=== PATIENT | female | born 1980 | race Caucasian/White ===

== ENCOUNTER 2017-03-26 12:00 | Emergency (ER) | payer OTHER ==
[2017-03-26 15:01] VITALS: BP 133/80
--- NOTE | 2017-03-26 15:23 | UC ---
Throat Pain/Nasal José Antonio HPI - HPI Summary HPI Summary: ST, chills, PND, nasal congestion started yesterday. 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 Swallowing "feels like razor blades." No cough or trouble breathing. - History of Current Complaint Stated Complaint: THROAT,DAVEY,FEVER Time Seen by Provider: 03/26/17 14:57 Hx Obtained From: Patient ?: No Onset/Duration: Gradual Onset, Lasting Hours Severity: Moderate Cough: None Associated Signs & Symptoms: Positive: Sinus Discomfort, Fever. Negative: Wheezing, Hoarseness, Vomiting, Rash - Allergies/Home Medications Allergies/Adverse Reactions: Allergies Allergy/AdvReac Type Severity Reaction Status Date / Time No Known Allergies Allergy Verified 03/26/17 15:01 Home Medications: Home Medications Ibuprofen TAB* [Motrin TAB* 800 MG] 800 mg PO ONCE PRN 03/26/17 [History Confirmed 03/26/17] PMH/Surg Hx/FS Hx/Imm Hx Previously Healthy: Yes - Surgical History Surgical History: Yes Surgery Procedure, Year, and Place: right foot surgery x3 - Family History Known Family History: Negative: Blood Disorder - Social History Occupation: Employed Part-time Alcohol Use: None Substance Use Type: None Smoking Status (MU): Never Smoked Tobacco Review of Systems Constitutional: Fever, Chills Skin: Negative Eyes: Negative ENT: Sore Throat Respiratory: Negative Cardiovascular: Negative Gastrointestinal: Negative Genitourinary: Negative Motor: Negative Neurovascular: Negative Musculoskeletal: Negative Neurological: Negative Psychological: Negative Is Patient Immunocompromised?: No All Other Systems Reviewed And Are Negative: Yes Physical Exam Triage Information Reviewed: Yes Appearance: No Pain Distress, Well-Nourished Vital Signs: Initial Vital Signs Temp 98.6 F 03/26/17 14:57 Pulse 91 03/26/17 14:57 Resp 16 03/26/17 14:57 BP 133/80 03/26/17 14:57 Pulse Ox 100 03/26/17 14:57 Vital Signs Reviewed: Yes Eye Exam: Normal Eyes: Positive: Conjunctiva Clear ENT: Positive: Normal ENT inspection, Hearing grossly normal, Pharynx normal, Nasal congestion, TMs normal. Negative: TM bulging, TM dull, TM red, Tonsillar swelling, Tonsillar exudate Dental Exam: Normal Neck exam: Normal Neck: Positive: Supple, Nontender, No Lymphadenopathy Respiratory Exam: Normal Respiratory: Positive: Chest non-tender, Lungs clear, Normal breath sounds, No respiratory distress, No accessory muscle use Cardiovascular Exam: Normal Cardiovascular: Positive: RRR, No Murmur Musculoskeletal Exam: Normal Neurological Exam: Normal Neurological: Positive: Alert Psychological Exam: Normal Skin Exam: Normal Throat Pain/Nasal Course/Dx - Differential Dx/Diagnosis Provider Diagnoses: URI, likely viral Discharge - Discharge Plan Condition: Stable Disposition: HOME Patient Education Materials: Upper Respiratory Infection (ED) Forms: *Work Release Referrals: Tierra Rosales MD [Primary Care Provider] - Additional Instructions: [id number] MEDICINES ARE ONLY INTENDED TO GIVE TEMPORARY RELIEF. YOU SHOULD STOP TAKING ANY COUGH OR COLD PREPARATION THAT FAILS TO MAKE YOU FEEL AT LEAST A LITTLE BIT BETTER. a DECONGESTANT can help with your stuffiness and sinuses. The most effective decongestant is Pseudoephedrine (Sudafed or generic), but you need to ask the pharmacist as it is kept behind the counter. ANTIHISTAMINES are generally NOT helpful in many colds and flus, as they can worsen sore throat and cause dry eyes/mouth and drowsiness. Antihistamines are nearly always found in "nighttime" medicines for their sedating properties ( such as Nyquil). Examples are Diphenhydramine HCL, Doxylamine, and Chlorpheniramine. They may help if you are having profuse clear drainage from the nose. an EXPECTORANT helps thin mucous in the nose and in the chest, making it easier to clear out. Expectorants are in most combination cough/cold remedies and should be taken with plenty of water. Guaifenesin is the most common expectorant , and comes in pill or liquid form (Mucinex is an extended-release form of guaifenesin). a COUGH SUPPRESSANT reduces the body's cough reflex. Dextromethorphan is in over -the-counter products, but sometimes narcotics (such as codeine or hydrocodone) are used for their cough suppressant properties. WHILE THERE IS NO CURE FOR A VIRAL COLD, THERE IS SOME EVIDENCE THAT VITAMIN C, ZINC LOZENGES, AND ECHINACEA CAN HELP SHORTEN THE DURATION OF SYMPTOMS; APPROXIMATE DOSES ARE UP TO 1000mg VITAMIN C PER DAY AND ZINC LOZENGES (MUST BE DISSOLVED IN THE MOUTH AND NOT SWALLOWED) EVERY 2 HOURS WHILE AWAKE. THE DOSE OF ECHINACEA HAS NOT BEEN ESTABLISHED, SO MAKE SURE YOU FOLLOW THE DIRECTIONS ON THE PACKAGE OF ANY PRODUCT YOU CHOOSE TO USE.
== END 2017-03-26 15:34 | disposition home or self-care (01) ==
LOC: UCCORT 12:00
DX: J06.9 Acute upper respiratory infection, unspecified (principal)
CPT/HCPCS: 87651; 99201; G0463

== ENCOUNTER 2017-09-26 15:36 | Emergency (ER) | payer SELFPAY ==
[2017-09-26 16:01] VITALS: BP 110/74
--- NOTE | 2017-09-26 16:32 | UC ---
Throat Pain/Nasal José Antonio HPI - HPI Summary HPI Summary: 36 yo female with sore throat x 1 day fever no cp or sob no n/v - History of Current Complaint Chief Complaint: UCRespiratory Stated Complaint: SORE/SWOLLEN THROAT Time Seen by Provider: 09/26/17 15:51 Hx Obtained From: Patient Hx Last Menstrual Period: essure- 1.5 month ago Onset/Duration: Sudden Onset, Lasting Hours Severity: Moderate Pain Intensity: 5 Pain Scale Used: 0-10 Numeric Cough: None Associated Signs & Symptoms: Positive: Fever - Allergies/Home Medications Allergies/Adverse Reactions: Allergies Allergy/AdvReac Type Severity Reaction Status Date / Time No Known Allergies Allergy Verified 09/26/17 15:54 Home Medications: Home Medications Dexmethylphenidate HCl [Focalin] 1 tab BID 09/26/17 [History Confirmed 09/26/17] PMH/Surg Hx/FS Hx/Imm Hx Previously Healthy: Yes - Surgical History Surgical History: Yes Surgery Procedure, Year, and Place: right foot surgery x3 - Family History Known Family History: Negative: Blood Disorder - Social History Alcohol Use: None Substance Use Type: None Smoking Status (MU): Never Smoked Tobacco - Immunization History Most Recent Tetanus Shot: UTD Review of Systems Constitutional: Fever Skin: Negative Eyes: Negative ENT: Sore Throat Respiratory: Negative Cardiovascular: Negative Gastrointestinal: Negative Genitourinary: Negative Motor: Negative Neurovascular: Negative Musculoskeletal: Negative Neurological: Negative Psychological: Negative Is Patient Immunocompromised?: No All Other Systems Reviewed And Are Negative: Yes Physical Exam Triage Information Reviewed: Yes Appearance: Well-Appearing, No Pain Distress, Well-Nourished Vital Signs: Initial Vital Signs Temp 98.2 F 09/26/17 15:56 Pulse 89 09/26/17 15:56 Resp 17 09/26/17 15:56 BP 110/74 09/26/17 15:56 Pulse Ox 100 09/26/17 15:56 Vital Signs Reviewed: Yes Eyes: Positive: Conjunctiva Clear ENT: Positive: Pharyngeal erythema, Tonsillar swelling, Tonsillar exudate. Negative: Nasal congestion, Nasal drainage, Hoarse voice Neck: Positive: Supple, Nontender, Enlarged Nodes @ - ant cervical Respiratory: Positive: Lungs clear, Normal breath sounds, No respiratory distress, No accessory muscle use Cardiovascular: Positive: RRR, No Murmur Musculoskeletal: Positive: ROM Intact, No Edema Neurological: Positive: Alert Psychological Exam: Normal Skin Exam: Normal Diagnostics - Laboratory Diagnostic Studies Completed/Ordered: strep (-) Throat Pain/Nasal Course/Dx - Differential Dx/Diagnosis Provider Diagnoses: acute tonsillitis Discharge - Sign-Out/Discharge Documenting (check all that apply): Discharge/Admit/Transfer - Discharge Plan Condition: Stable Disposition: HOME Prescriptions: Cephalexin CAP* [Keflex CAP*] 500 mg PO BID #20 cap Patient Education Materials: Tonsillitis (ED) Referrals: Jorje Saini MD [Primary Care Provider] - Additional Instructions: rest fluids tylenol or advil recheck in 3-4 days if not better recheck sooner if symptoms worsen - Billing Disposition and Condition Condition: STABLE Disposition: HOME
== END 2017-09-26 16:34 | disposition home or self-care (01) ==
LOC: UCCORT 15:36
DX: J03.90 Acute tonsillitis, unspecified (principal)
CPT/HCPCS: 87651; 99212; G0463

== ENCOUNTER 2018-12-04 10:22 | Emergency (ER) | payer BC ==
[2018-12-04 11:46] VITALS: BP 111/72
--- NOTE | 2018-12-04 12:00 | UC ---
Skin Complaint HPI - HPI Summary HPI Summary: Pt presents with c/o itchy rash to right upper posterior leg that began "a couple days ago". Pt has known exposure to chicken pox, has hx of chickenpox as child, reports that she has generalized malaise and that rash is spreading. - History of Current Complaint Chief Complaint: UCSkin Time Seen by Provider: 12/04/18 11:48 Stated Complaint: SKIN COMPLAINT Hx Obtained From: Patient Hx Last Menstrual Period: 11/20/18 ?: No Onset/Duration: Sudden Onset, Lasting Days, Still Present Skin Exposure Onset/Duration: Days Ago Timing: Constant Onset Severity: Mild Current Severity: Mild Pain Intensity: 3 Location: Diffuse Character: Pruritus, Raised, Painful Aggravating Factor(s): Touch Alleviating Factor(s): Nothing Associated Signs & Symptoms: Positive: Rash Related History: Other: - known exposure - Allergy/Home Medications Allergies/Adverse Reactions: Allergies Allergy/AdvReac Type Severity Reaction Status Date / Time No Known Allergies Allergy Verified 12/04/18 11:47 Home Medications: Home Medications Amphetamine MIXED SALT TAB* [Adderall TAB*] 1 tab PO DAILY 12/04/18 [History Confirmed 12/04/18] PMH/Surg Hx/FS Hx/Imm Hx Previously Healthy: Yes - Surgical History Surgical History: Yes Surgery Procedure, Year, and Place: right foot surgery x3 - Family History Known Family History: Negative: Blood Disorder - Social History Occupation: Employed Full-time Lives: With Family Alcohol Use: None Substance Use Type: None Smoking Status (MU): Never Smoked Tobacco Have You Smoked in the Last Year: No - Immunization History Most Recent Tetanus Shot: UTD Vaccination Up to Date: Yes Review of Systems All Other Systems Reviewed And Are Negative: Yes Constitutional: Positive: Negative Skin: Positive: Rash Eyes: Positive: Negative ENT: Positive: Negative Respiratory: Positive: Negative Cardiovascular: Positive: Negative Gastrointestinal: Positive: Negative Genitourinary: Positive: Negative Motor: Positive: Negative Neurovascular: Positive: Negative Musculoskeletal: Positive: Negative Neurological: Positive: Negative Psychological: Positive: Negative Is Patient Immunocompromised?: No Physical Exam Triage Information Reviewed: Yes Appearance: Well-Appearing Vital Signs: Initial Vital Signs Temp 98.9 F 12/04/18 11:40 Pulse 79 12/04/18 11:40 Resp 16 12/04/18 11:40 BP 111/72 12/04/18 11:40 Pulse Ox 98 12/04/18 11:40 Vital Signs Reviewed: Yes Eye Exam: Normal ENT: Positive: Hearing grossly normal Dental Exam: Normal Neck exam: Normal Respiratory: Positive: No respiratory distress Musculoskeletal Exam: Normal Neurological Exam: Normal Psychological Exam: Normal Skin: Positive: Rashes - right upper posterior thigh, vessicles with clear fluid , some closed and some opened and drained, pt c/o they are itchy and tender to touch Course/Dx - Differential Diagnoses - Skin Complaint Differential Diagnoses: Varicella Zoster, Viral Exanthem - Diagnoses Provider Diagnosis: Rash and nonspecific skin eruption Discharge - Sign-Out/Discharge Documenting (check all that apply): Patient Departure All imaging exams completed and their final reports reviewed: No Studies - Discharge Plan Condition: Stable Disposition: HOME Prescriptions: ValACYclovir (*) [Valtrex 500 mg (*)] 500 mg PO Q12H #14 tab Patient Education Materials: Acute Rash (ED), Viral Syndrome (ED) Forms: *Work Release Referrals: Jorje Sanii MD [Primary Care Provider] - If Needed - Billing Disposition and Condition Condition: STABLE Disposition: Home - Attestation Statements Provider Attestation: Pt not seen by me. I was available for consult. BRANDON
== END 2018-12-04 12:08 | disposition home or self-care (01) ==
LOC: UCCORT 10:22
DX: R21 Rash and other nonspecific skin eruption (principal)
CPT/HCPCS: 99212; G0463

== ENCOUNTER 2019-04-27 16:41 | Emergency (ER) | payer BC ==
[2019-04-27 16:51] VITALS: BP 108/70
--- NOTE | 2019-04-27 16:58 | UC ---
Ear Complaint HPI - HPI Summary HPI Summary: C/O 4 day h/o URI with congestion with right sided sinus pain and ear fullness/ pressure pain. Cough with some coughing fits. H/O seasonal allergies. - History of Current Complaint Chief Complaint: UCRespiratory Stated Complaint: SINUS COMPLAINT Hx Obtained From: Patient Hx Last Menstrual Period: 04/08/19 ?: No Onset/Duration: Sudden Onset, Lasting Days - 4, Still Present Severity Initially: Moderate Severity Currently: Moderate Pain Intensity: 5 Aggravating Factors: Nothing Associated Signs/Symptoms: Positive: Hearing Loss, URI Symptoms Related History: Seasonal Allergies - Allergies/Home Medications Allergies/Adverse Reactions: Allergies Allergy/AdvReac Type Severity Reaction Status Date / Time No Known Allergies Allergy Verified 04/27/19 16:51 Home Medications: Home Medications Bupropion XL* [Wellbutrin XL *] 150 mg BID 04/27/19 [History Confirmed 04/27/19] PMH/Surg Hx/FS Hx/Imm Hx Previously Healthy: Yes - Surgical History Surgical History: Yes Surgery Procedure, Year, and Place: right foot surgery x3 - Family History Known Family History: Negative: Diabetes, Blood Disorder - Social History Occupation: Employed Full-time Lives: With Family Alcohol Use: None Substance Use Type: None Smoking Status (MU): Never Smoked Tobacco Have You Smoked in the Last Year: No - Immunization History Most Recent Tetanus Shot: UTD Vaccination Up to Date: Yes Review of Systems All Other Systems Reviewed And Are Negative: Yes Constitutional: Positive: Fever, Chills ENT: Positive: Sore Throat, Ear Ache, Nasal Discharge, Sinus Congestion Respiratory: Positive: Shortness Of Breath, Cough Physical Exam Triage Information Reviewed: Yes Appearance: No Pain Distress, Well-Nourished, Ill-Appearing Vital Signs: Initial Vital Signs Temp 98.7 F 04/27/19 16:48 Pulse 95 04/27/19 16:48 Resp 17 04/27/19 16:48 BP 108/70 04/27/19 16:48 Pulse Ox 98 04/27/19 16:48 Vital Signs Reviewed: Yes Eyes: Positive: Conjunctiva Clear ENT: Positive: Pharynx normal, Nasal congestion, TMs normal - with some retraction Neck exam: Normal Respiratory: Positive: Lungs clear, Wheezing - expiratory wheeze with coughing. Cardiovascular Exam: Normal Musculoskeletal Exam: Normal Neurological Exam: Normal Psychological Exam: Normal Skin Exam: Normal Ear Complaint Course/Dx - Differential Dx/Diagnosis Differential Diagnosis/HQI/PQRI: Otitis Media, Pharyngitis, URI Provider Diagnosis: Upper respiratory infection with cough and congestion, Acute bacterial sinusitis, Acute bronchospasm Discharge ED - Sign-Out/Discharge Documenting (check all that apply): Patient Departure All imaging exams completed and their final reports reviewed: No Studies - Discharge Plan Condition: Stable Disposition: HOME Prescriptions: Amoxicillin PO (*) [Amoxicillin 875 MG (*)] 875 mg PO BID #20 tab predniSONE TAB* [Deltasone 20 MG TAB*] 60 mg PO DAILY #18 tab Patient Education Materials: Upper Respiratory Infection (ED), Bronchospasm (ED ), Sinusitis (ED) Forms: *Work Release Referrals: Brian Canas MD [Primary Care Provider] - - Billing Disposition and Condition Condition: STABLE Disposition: Home
== END 2019-04-27 17:11 | disposition home or self-care (01) ==
LOC: UCCORT 16:41
DX: J06.9 Acute upper respiratory infection, unspecified (principal); R05 Cough; R09.81 Nasal congestion; J01.80 Other acute sinusitis; J98.01 Acute bronchospasm; B96.89 Other specified bacterial agents as the cause of diseases classified elsewhere
CPT/HCPCS: 99212; G0463